=== PATIENT | male | born 1955 | race Caucasian/White ===

== ENCOUNTER 2018-08-23 22:05 | Emergency (ER) | payer OTHER, SELFPAY ==
[2018-08-23 22:08] VITALS: BP 137/78; PULSE 87; RESP 16; TEMP 36.5; O2SAT 98; BMI 23.6
--- NOTE | 2018-08-23 23:37 | ED.VISSUMM ---
- ER Visit Summary Date of Service: 08/23/18 Chief Complaint: cat bite to left arm History of Present Illness: The patient is a 63 M presents for evaluation of a cat bite on his left arm. Patient was bitten yesterday by a feral kitten of his neighbors. The kitten has not had any vaccinations due to its age, but is currently being observed. Patient was prescribed Augmentin by his primary care doctor yesterday and has had a total of 3 doses. He has an odd feeling around the bite dull achy pain. He denies fever, swelling or redness around the site, any axillary tenderness, or any constitutional symptoms. He is concerned because the kittens manufacturing technologist is currently in the ICU for an unknown illness, and he is concerned it may be something from the kitten. He states the manufacturing technologist is also being worked up for possible tickborne illnesses. Patient's tetanus is up-to-date. Physical Examination: Vital signs: afebrile, hemodynamically stable, no hypoxia on room air General: well nourished, well developed, in no distress Skin: warm, dry, no rash, no pallor HEENT: normocephalic and atraumatic; PERRL, EOMI, moist mucous membranes Cardiovascular: regular rate and rhythm without murmurs, no peripheral edema, 2+ pulses bilateral upper extremities Respiratory: No increased work of breathing MSK: Moves all extremities, no deformities, normal strength, left upper extremity shows a small puncture paz on the dorsal surface of the mid upper arm without any induration, purulent drainage, erythema, or lymphangitis. No tenderness to palpation of the area. No axillary lymphadenopathy or tenderness. Sensation and motor function are intact in that arm. Neuro: Awake and alert, oriented ?4. No facial droop, sensation and motor function intact and symmetric Test Results: [] Emergency Department Course and Treatment: Patient has no signs of infection at the site of the cat bite. Discussed with patient that Augmentin is the appropriate antibiotic for him to be on, and he has been on it for under 48 hours, thus there is no reason to change it at this time. He also has no signs of infection at the site, except for his subjective sensation of an odd feeling in the area. Patient is concerned that his neighbor is in the ICU due to something it caught from the kitten, although there is no specific reason to believe that. Because of patient's significant concern over infection from the bite, he was given a prescription for doxycycline that he can switch to if he is not having improvement in his subjective pain at the site of the bite within another day. Patient was reassured that there is no sign of infection or abscess formation at the site of the bite, but he should be diligent to watch for it, as cat bites do have a tendency to get infected due to the small size of their teeth. Rabies treatment is not necessary at this time, because the kitten is currently being closely monitored. Patient is to follow-up with his primary care doctor immediately if the kidney is lost to follow-up or showing any signs of rabies. Patient was discharged home. Treatment Plan: [] Disposition: [] Impression: cat bite to left arm This note was generated with [employer] dictation software. It may contain incorrect words, spelling, and punctuation that were not noted in review of the chart prior to signing ED Disposition - Plan for ED Patient: Disposition: Home or Assisted Living Chief Complaint: Bite Instructions: ED Bite Cat Prescriptions: RX: Doxycycline 100 mg PO BID #14 cap Referrals: [facility] Doctor,Out of [Primary Care Provider] - 3-5 Days if not improving Additional Instructions: Please continue taking your antibiotics for your cat bite. If you develop any fever, red streaking up your arm, redness or swelling at the bite site, tenderness in your armpit, or of any other concerns, return to the emergency department or see her doctor immediately. Please follow-up on the rabies status of the kitten. If at any point the kitten is lost to follow-up, please follow-up with your doctor as soon as possible to discuss whether you need the rabies series. If you have any worsening of your condition or any new concerning symptoms, please return immediately to the emergency department for another evaluation.
== END 2018-08-23 23:48 | disposition home or self-care (01) ==
PROVIDERS: Emergency Provider Emergency Medicine
DX: S41.152D Open bite of left upper arm, subsequent encounter (principal); Z79.2 Long term (current) use of antibiotics; W55.01XD Bitten by cat, subsequent encounter
CPT/HCPCS: 99282